=== PATIENT | male | born 1970 | race Caucasian/White ===

== ENCOUNTER 2016-05-11 07:13 | Emergency (ER) | payer BC ==
[~2016-05-11] VITALS: Ht 182.9 cm; Wt 91.7 kg
[2016-05-11 07:16] VITALS: TEMP 36.6; Ht 182.9 cm; Wt 91.7 kg
[2016-05-11 07:30] VITALS: O2SAT 97
[2016-05-11] MEDS ORDERED: SODIUM CHLORIDE 0.9% 1000ML 1,000 ML IV STA (07:33)
[2016-05-11] MEDS ORDERED: ACETAMINOPHEN 500 MG TAB PO STA (07:33)
[2016-05-11] MEDS ORDERED: ONDANSETRON INJ 2 MG/ML 2 ML VIAL IV STA (07:33)
[2016-05-11] MEDS ORDERED: HYDROmorphone INJ 1 MG/ML SYR IV STA ×2 (07:33)
[2016-05-11] MEDS ORDERED: KETOROLAC TROMETHAMINE 30 MG/ML VIAL IV STA (07:33)
[2016-05-11 07:44] LABS: BASO % 0.3 %; BASO ABS # 0.02 K/uL (0-0.2); COMPLETE YES; EOS % 1.2 %; HEMATOCRIT 42.1 % (42-52); IG% 0.1 %; LYMPH % 34.1 %; LYMPH ABS # 2.31 K/uL (1.2-3.4); MEAN CELL VOLUME 82.5 fL (80-100); MEAN CORPUSCULAR HEMOGLOBIN 28.8 pg (25-34); MEAN CORPUSCULAR HGB CONC 34.9 g/dl (32-36); MEAN PLATELET VOLUME 9.3 fL (7.4-10.4); NEUT % 54.3 %; PLATELET COUNT 283 K/uL (130-400); WHITE BLOOD COUNT 6.77 K/uL (4.8-10.8)
--- NOTE | 2016-05-11 07:48 | EMERGENCY ROOM VISIT NOTE ---
History Report prepared by Christina: Pauline Amaro Under the Supervision of: Dr. Damaso Romano M.D. First contact with patient: 07:31 Chief Complaint: KIDNEY STONE Stated Complaint: KIDNEY STONE History of Present Illness The patient is a 46 year old male who presents to the Emergency Room with complaints of worsening left-sided flank pain that started at about 0400 this morning. He rates his discomfort as a 10/10 in severity. The pain radiates into his left leg, but he denies any radiation into his groin. The patient has also been unable to void since about 0400 this morning. He denies abdominal pain. The patient states that he has a history of prostate issues, but denies any other significant medical problems. The patient denies any history of kidney stones. Source of History: patient Onset: 0400 this morning Position: back (left flank pain) Symptom Intensity: 10/10 Quality: other (left flank pain) Timing: worsening Associated Symptoms: + urinary symptoms (unable to void), No abdominal pain Note: radiating pain into left leg Review of Systems See HPI for pertinent positives & negatives. A total of 10 systems reviewed and were otherwise negative. Past Medical & Surgical Medical Problems: (1) Hyperlipidemia (2) Unspecified disorder of prostate Family History No pertinent family history Social History Smoking Status: Never Smoker Marital Status: Housing Status: lives with family Current/Historical Medications Scheduled Multivitamin (Multivitamin), 1 TAB PO DAILY Ondasetron Odt (Zofran Odt), 4 MG SL Q6H Tamsulosin Hcl (Flomax), 0.4 MG PO DAILY Scheduled PRN Oxycodone/Acetaminophen 5MG/325MG (Percocet 5MG/325MG), 1-2 TABLETS PO Q4H PRN for Pain Allergies Uncoded Allergies: NKDA (Allergy, Unknown, 08/09/03) Physical Exam Vital Signs Date Time Temp Pulse Resp B/P Pulse Ox O2 Delivery O2 Flow Rate FiO2 05/11/16 09:36 58 20 124/79 96 Room Air 05/11/16 08:06 57 05/11/16 08:04 53 18 117/62 100 Room Air 05/11/16 07:30 97 Room Air 05/11/16 07:16 36.6 65 18 151/65 99 Room Air Physical Exam CONSTITUTIONAL: Patient is in severe painful distress. HEENT: No icterus, moist mucous membranes NECK: No meningismus, trachea is midline. CARDIOVASCULAR: Regular rate, normal perfusion RESPIRATORY: Unlabored breathing. Clear to auscultation. GASTROINTESTINAL: Non-tender GENITOURINARY: Left flank tenderness MUSCULOSKELETAL: Full range of motion. NEUROLOGIC: No acute gross focal deficits. PSYCHIATRIC: Normal affect SKIN: Normal for ethnicity. Medical Decision & Procedures ER Provider Diagnostic Interpretation: CT results as stated below per my review and radiologist interpretation. CT OF THE ABDOMEN AND PELVIS WITHOUT CONTRAST, STONE PROTOCOL IMPRESSION: 3 mm distal left ureteral calculus which results in mild left hydroureteronephrosis. Electronically signed by: Arsalan Overton M.D. 05/11/2016 8:48 AM Dictated Date/Time: 05/11/2016 8:45 AM Laboratory Results 05/11/16 07:28 Red Blood Count 5.10, Mean Corpuscular Volume 82.5, Mean Corpuscular Hemoglobin 28.8, Mean Corpuscular Hemoglobin Concent 34.9, Mean Platelet Volume 9.3, Neutrophils (%) (Auto) 54.3, Lymphocytes (%) (Auto) 34.1, Monocytes (%) (Auto) 10.0, Eosinophils (%) (Auto) 1.2, Basophils (%) (Auto) 0.3, Neutrophils # (Auto ) 3.67, Lymphocytes # (Auto) 2.31, Monocytes # (Auto) 0.68, Eosinophils # (Auto ) 0.08, Basophils # (Auto) 0.02 05/11/16 07:28 Test 05/11/16 07:28 05/11/16 08:25 White Blood Count 6.77 K/uL (4.8-10.8) Red Blood Count 5.10 M/uL (4.7-6.1) Hemoglobin 14.7 g/dL (14.0-18.0) Hematocrit 42.1 % (42-52) Mean Corpuscular Volume 82.5 fL (80-100) Mean Corpuscular Hemoglobin 28.8 pg (25-34) Mean Corpuscular Hemoglobin Concent 34.9 g/dl (32-36) Platelet Count 283 K/uL (130-400) Mean Platelet Volume 9.3 fL (7.4-10.4) Neutrophils (%) (Auto) 54.3 % Lymphocytes (%) (Auto) 34.1 % Monocytes (%) (Auto) 10.0 % Eosinophils (%) (Auto) 1.2 % Basophils (%) (Auto) 0.3 % Neutrophils # (Auto) 3.67 K/uL (1.4-6.5) Lymphocytes # (Auto) 2.31 K/uL (1.2-3.4) Monocytes # (Auto) 0.68 K/uL (0.11-0.59) Eosinophils # (Auto) 0.08 K/uL (0-0.5) Basophils # (Auto) 0.02 K/uL (0-0.2) RDW Standard Deviation 37.7 fL (36.4-46.3) RDW Coefficient of Variation 12.5 % (11.5-14.5) Immature Granulocyte % (Auto) 0.1 % Immature Granulocyte # (Auto) 0.01 K/uL (0.00-0.02) Anion Gap 11.0 mmol/L (3-11) Est Creatinine Clear Calc Drug Dose 62.7 ml/min Estimated GFR () 58.6 Estimated GFR (Non- 50.6 BUN/Creatinine Ratio 11.4 (10-20) Calcium Level 8.6 mg/dl (8.5-10.1) Urine Color YELLOW Urine Appearance CLEAR (CLEAR) Urine pH 7.5 (4.5-7.5) Urine Specific [place] 1.020 (1.000-1.030) Urine Protein NEG (NEG) Urine Glucose (UA) NEG (NEG) Urine Ketones NEG (NEG) Urine Occult Blood 3+ (NEG) Urine Nitrite NEG (NEG) Urine Bilirubin NEG (NEG) Urine Urobilinogen NEG (NEG) Urine Leukocyte Esterase NEG (NEG) Urine RBC >30 /hpf (0-4) Urine WBC 1-5 /hpf (0-5) Urine Epithelial Cells 0-5 /lpf (0-5) Urine Bacteria 1+ (NEG) Labs reviewed by ED physician. Medications Administered Medications (Trade) Dose Ordered Sig/Beth Route Start Time Stop Time Status Last Admin Dose Admin Sodium Chloride (Nss 1000ml) 1,000 ml @ 0 mls/hr Q0M STAT IV 05/11/16 07:33 05/11/16 07:35 DC 05/11/16 07:33 0 MLS/HR Acetaminophen (Tylenol Tab) 1,000 mg NOW STAT PO 05/11/16 07:33 05/11/16 07:35 DC 05/11/16 07:43 1,000 MG Ketorolac Tromethamine (Toradol Inj) 30 mg NOW STAT IV 05/11/16 07:33 05/11/16 07:35 DC 05/11/16 07:42 30 MG Hydromorphone HCl (Dilaudid Inj) 1 mg PRN STAT IV 05/11/16 07:33 05/11/16 07:35 DC 05/11/16 07:42 1 MG Ondansetron HCl (Zofran Inj) 4 mg NOW STAT IV 05/11/16 07:33 05/11/16 07:35 DC 05/11/16 07:42 4 MG ED Course 0733: Ordered Dilaudid Inj 1 mg IV, Zofran Inj 4 mg IV, Dilaudid Inj 1 mg IV, Toradol Inj 30 mg IV, Tylenol Tab 1000 mg PO, Sodium Chloride 1000 ml @ 0 mls/ hr Wide Open IV 0735: Past medical records reviewed. The patient was evaluated in room B7. A complete history and physical examination was performed. 0908: Upon reexamination the patient is doing better. I discussed results and treatment plan with the patient. He verbalizes agreement and understanding. The patient is ready for discharge. Medical Decision Differential diagnoses include but are not limited to; ureterolithiasis. 46-year-old presented to the emergency department with acute onset of left flank pain. CT 3 mm stone. Creatinine 1.6. Patient comfortable on reexam prior to discharge. Given copy of CT report and labs and has follow-up with urology. Prescriptions for Flomax, Zofran, Percocet. Impression Primary Impression: Ureterolithiasis Scribe Attestation The scribe's documentation has been prepared under my direction and personally reviewed by me in its entirety. I confirm that the note above accurately reflects all work, treatment, procedures, and medical decision making performed by me. Departure Information Dispostion Home / Self-Care Prescriptions Tamsulosin Hcl (FLOMAX) 0.4 Mg Cap 0.4 MG PO DAILY, #10 CAP Prov: Damaso Romano MD 05/11/16 Ondasetron Odt (ZOFRAN ODT) 4 Mg Tab 4 MG SL Q6H for Nausea, #20 TAB Prov: Damaso Romano MD 05/11/16 Oxycodone/Acetaminophen 5MG/325MG (PERCOCET 5MG/325MG) Tab 1-2 TABLETS PO Q4H Y for Pain, #24 TAB Prov: Damaso Romano MD 05/11/16 Referrals No Doctor, Assigned (PCP) Forms HOME CARE DOCUMENTATION FORM, IMPORTANT VISIT INFORMATION Patient Instructions Kidney Stones - [facility], [place], [facility]
[2016-05-11 08:01] LABS: BUN/CREATININE RATIO 11.4 (10-20); CALCIUM 8.6 mg/dl (8.5-10.1); CREATININE 1.6 mg/dl (0.60-1.40); POTASSIUM 3.3 mmol/L (3.5-5.1)
[2016-05-11] MEDS ORDERED: MULT-506 PO (08:06)
--- NOTE | 2016-05-11 08:49 | DIAGNOSTIC IMAGING REPORT ---
CT OF THE ABDOMEN AND PELVIS WITHOUT CONTRAST, STONE PROTOCOL CLINICAL HISTORY: Flank pain. COMPARISON STUDY: None. TECHNIQUE: Helical axial images of the abdomen and pelvis were obtained without IV or oral contrast according to renal stone protocol. FINDINGS: A 3 mm distal left ureteral calculus results in mild left hydroureteronephrosis. There is minimal left perinephric infiltration. Unenhanced images of liver, spleen, adrenal glands and pancreas are normal. There is no evidence for a bowel obstruction. The appendix is normal. There is no lymphadenopathy. Skeletal structures are unremarkable. IMPRESSION: 3 mm distal left ureteral calculus which results in mild left hydroureteronephrosis. Electronically signed by: Arsalan Overton M.D. 05/11/2016 8:48 AM Dictated Date/Time: 05/11/2016 8:45 AM
[2016-05-11 08:50] LABS: MANUAL MICROSCOPIC REQUIRED? YES; URINE APPEARANCE CLEAR (CLEAR); URINE BILIRUBIN NEG (NEG); URINE COLOR YELLOW; URINE NITRITE NEG (NEG); URINE PH 7.5 (4.5-7.5); UROBILINOGEN NEG (NEG)
[2016-05-11 08:57] LABS: REVIEW REQ? NO; SULFASALICYLIC ACID NEG (NEG)
[2016-05-11 09:01] LABS: URINE BACTERIA 1+ (NEG); URINE RBC >30 /hpf (0-4)
[2016-05-11 09:02] LABS: ZZUR CULT IF INDIC CLEAN CATCH YES
[2016-05-11] MEDS ORDERED: OXYC-57 PO (09:16)
[2016-05-11] MEDS ORDERED: TAMS0.4C38 PO (09:18)
[2016-05-11] MEDS ORDERED: ONDA4TAB10 SL (09:18)
[2016-05-11 09:36] VITALS: BP 124/79; PULSE 58; O2SAT 96
== END 2016-05-11 10:02 | disposition home or self-care (01) ==
LOC: C.EDB 07:14
DX: N20.9 Urinary calculus, unspecified (principal); E78.5 Hyperlipidemia, unspecified

== ENCOUNTER → 2016-05-19 | Outpatient (CLI) | payer BC ==
[~2016-05-19] MED LIST: MULT-506 PO; ONDA4TAB10 SL; OXYC-57 PO; TAMS0.4C38 PO
--- NOTE | 2016-05-19 14:14 | DIAGNOSTIC IMAGING REPORT ---
[facility] CLINICAL HISTORY: N20.0 Nephrolithiasis COMPARISON STUDY: CT scan dated 05/11/2016 FINDINGS: There is no evidence of pathologic bowel dilatation. No renal calculi are visualized. There is a left pelvic basin calcification, consistent with a phlebolith. The distal left ureteral calculus described on the recent CT scan is not visible on conventional radiographic imaging IMPRESSION: 1. No evidence of pathologic bowel dilatation 2. No urinary tract calculi are visualized Electronically signed by: Fausto Wright M.D. 05/19/2016 2:13 PM Dictated Date/Time: 05/19/2016 2:12 PM
== END | disposition home or self-care (01) ==
LOC: C.RAD 13:29
PROVIDERS: ATTEND Urology
DX: N20.0 Calculus of kidney (principal)